=== PATIENT | female | born 1995 | race Caucasian/White ===

== ENCOUNTER 2016-10-17 09:52 | Emergency (ER) | payer OTHER ==
--- NOTE | 2016-10-17 10:07 | ED ---
Skin/Abscess/FB HPI - General Chief complaint: Skin/Abscess/Foreign Body Stated complaint: CYST RT INNER THIGH Source: patient Mode of arrival: ambulatory Limitations: no limitations - History of Present Illness Initial comments: Pt is a 21 y/o female presenting with "bartholin cyst" on the right mid- labia.No significant PMH. Pt has a hx of this with last occurrence being in Jul 2016. Has a j2ee consultant and set up an appointment (Dr. Rodriguez). Has noticed a bump for the past 1-2 weeks. Has gotten a little bigger during this time. 5/10 pain. Has not tried taking any home remedies for this. She is sexually active and wears protection. LMP 10/08/16. Denies vaginal bleeding/ discharge. Denies F/C, PATEL, changes in vision, URI symptoms, CP, SOB, cough, N/V/ D, pain/burning with urination. - Related Data Home Medications Medication Instructions Recorded Confirmed Cpm/PE/Dm/Acetaminophen/Guaifn 2 tab PO Q6H PRN 10/17/16 10/17/16 [Tylenol Cold-Flu Day-Nt Caplet] Previous Rx's Medication Instructions Recorded Sulfamethox-Tmp 800-160Mg [Bactrim 1 tab PO Q12HR 7 Days 10/17/16 DS 800-160 mg] Allergies Allergy/AdvReac Type Severity Reaction Status Date / Time amoxicillin AdvReac Rash/Hives Verified 10/17/16 10:24 Penicillins AdvReac Rash/Hives Verified 10/17/16 10:24 Review of Systems ROS Statement: Those systems with pertinent positive or pertinent negative responses have been documented in the HPI. ROS Other: All systems not noted in ROS Statement are negative. Past Medical History Past Medical History: No Reported History History of Any Multi-Drug Resistant Organisms: None Reported Past Surgical History: No Surgical Hx Reported Past Psychological History: No Psychological Hx Reported Smoking Status: Current every day smoker Past Alcohol Use History: Occasional Past Drug Use History: None Reported General Exam Limitations: no limitations General appearance: alert, in no apparent distress Head exam: Present: atraumatic, normocephalic, normal inspection Eye exam: Present: normal appearance, PERRL, EOMI. Absent: scleral icterus, conjunctival injection, periorbital swelling ENT exam: Present: normal exam, mucous membranes moist Neck exam: Present: normal inspection. Absent: tenderness, meningismus, lymphadenopathy Respiratory exam: Present: normal lung sounds bilaterally. Absent: respiratory distress, wheezes, rales, rhonchi, stridor Cardiovascular Exam: Present: regular rate, normal rhythm, normal heart sounds. Absent: systolic murmur, diastolic murmur, rubs, gallop, clicks GI/Abdominal exam: Present: soft, normal bowel sounds, other (Abdomen is soft and nontender. No peritoneal signs.). Absent: distended, tenderness, guarding , rebound, rigid External exam: Present: other (There is a fluctuant Bartholin's cyst at the right lower labia (1.5 cm circular). Tender to the touch. No overlying cellulitis. No obvious vaginal discharge or bleeding.) Extremities exam: Present: normal inspection, full ROM, normal capillary refill. Absent: tenderness, pedal edema, joint swelling, calf tenderness Back exam: Present: normal inspection Neurological exam: Present: alert, oriented X3, CN II-XII intact Psychiatric exam: Present: normal affect, normal mood Skin exam: Present: warm, dry, intact, normal color. Absent: rash Course Vital Signs 10/17/16 10/17/16 09:57 11:38 Temperature 98.2 F 97.9 F Pulse Rate 82 64 Respiratory 17 16 Rate Blood Pressure 106/57 O2 Sat by Pulse 100 100 Oximetry Procedures - Incision & Drainage Consent Obtained: verbal consent Time Out Performed?: Yes Site: vulva/vagina Anesthetic Used: lidocaine 1% I&D Cleaning Method: Iodine Sterile Field Used?: Yes Scalpel Used: #11 Needle Aspiration Performed?: No Irrigation Performed?: No I&D Drainage Obtained: Pus, Blood Packing: Other (Word Catheter) Culture Obtained?: No Patient Tolerated Procedure: well, no complications, other (Filled word catheter with 1 cc tap water) Medical Decision Making - Medical Decision Making 1019: Pt presents for evaluation of "bartholin cyst". Hx of this. Has gynecology f/u. Will order UA/urine preg and perform a pelvic exam. 1111: Succesful I&D of bartholin cyst. purulent/bloody DC expressed with complete collapse of the bartholin cyst/abscess. Placed word catheter and filled 1 cc tap water. Discussed at length with the pt. Will DC with a course of bactrim (purulent drainage). Allergies to pencillin but not sulfa. Stressed importance of close f/u with j2ee consultant (Michael). Word catheter to stay in place for 4-6 weeks. No intercourse during this time. No soaking in bathtub/hot tub. Showers only. Discussed systemic signs of infection and when to return immediately to the ED. Also encouraged f/u with PCP. Answered all questions. - Lab Data Lab Results 10/17/16 10/17/16 Range/Units 10:25 10:25 Urine Color Yellow Urine Appearance Cloudy H (Clear) Urine pH 7.0 (5.0-8.0) Ur Specific [place] 1.016 (1.001-1.035) Urine Protein Negative (Negative) Urine Glucose (UA) Negative (Negative) Urine Ketones Negative (Negative) Urine Blood Negative (Negative) Urine Nitrate Negative (Negative) Urine Bilirubin Negative (Negative) Urine Urobilinogen <2.0 (<2.0) mg/dL Ur Leukocyte Esterase Negative (Negative) Urine WBC 2 (0-5) /hpf Ur Squamous Epith Cells 8 H (0-4) /hpf Urine HCG, Qual Not Detected (Not Detectd) Disposition Clinical Impression: Bartholin cyst Disposition: HOME SELF-CARE Condition: Good Instructions: Abscess Incision and Drainage (ED), Bartholin Cyst (ED) Prescriptions: Sulfamethox-Tmp 800-160Mg [Bactrim DS 800-160 mg] 1 tab PO Q12HR 7 Days Referrals: Josy Ogden MD [Primary Care Provider] - 1-2 days
[2016-10-17 11:07] LABS: Appearance,Urine Cloudy (Clear); Bilirubin,Urine Negative (Negative); Glucose,Urine (UA) Negative (Negative); Ketones,Urine Negative (Negative); Leukocyte Esterase,Urine Negative (Negative); Nitrite,Urine Negative (Negative); Particle Count 8592; Protein,Urine Negative (Negative); Specific Gravity,Urine 1.016 (1.001-1.035); Squamous Epithelial Cell,Urine 8 /hpf (0-4); UA Billing (MACRO vs. MICRO) MICRO; Urobilinogen,Urine <2.0 mg/dL (<2.0); WBC,Urine 2 /hpf (0-5)
[2016-10-17 11:40] VITALS: BP 106/57; PULSE 64; RESP 16; TEMP 97.9
== END 2016-10-17 11:39 | disposition home or self-care (01) ==
LOC: EC 09:52
DX: N75.0 Cyst of Bartholin's gland (principal); Z88.0 Allergy status to penicillin; F17.200 Nicotine dependence, unspecified, uncomplicated
CPT/HCPCS: 56420; 81001; 81025; 99283

== ENCOUNTER 2017-10-31 16:33 | Emergency (ER) | payer OTHER ==
[2017-10-31 16:49] VITALS: TEMP 97.5
[2017-10-31] MEDS ORDERED: HYDROcodone/APAP 5-325MG 1 EACH TAB PO STA (18:36)
[2017-10-31] MEDS ORDERED: KETOROLAC 30 MG/ML 1 ML VIAL IM STA (18:36)
--- NOTE | 2017-10-31 18:40 | ED ---
Skin/Abscess/FB HPI - General Chief complaint: Skin/Abscess/Foreign Body Stated complaint: Cyst Time Seen by Provider: 10/31/17 18:08 Source: patient Mode of arrival: ambulatory Limitations: no limitations - History of Present Illness Initial comments: 22-year-old female patient presents to the emergency department today for evaluation of swelling and abscess formation to the right labia. Patient states that she has a history of Bartholin cyst. States that she has been getting this on and off for the last 4-5 years. States that she has had them drained approximately 6 times. States that she was in to see her jewelry sorter approximately one week ago and did have it drained. States it has started swelling again and become more painful over the last 2 days. She states she has been taking her antibiotic however did miss 2 days. States she has taken her pain medication as directed. States she has been doing warm compresses. She denies any fevers or chills. Denies any nausea or vomiting. Denies any abnormal vaginal bleeding or discharge. Patient denies any recent rash, shortness breath, chest pain, abdominal pain, nausea, vomiting, diarrhea, constipation, back pain, numbness, tingling, dizziness, weakness, hematuria, dysuria, urinary urgency, urinary frequency, headache, visual changes, or any other complaints. - Related Data Home Medications Medication Instructions Recorded Confirmed Cpm/PE/Dm/Acetaminophen/Guaifn 2 tab PO Q6H PRN 10/17/16 10/17/16 [Tylenol Cold-Flu Day-Nt Caplet] Previous Rx's Medication Instructions Recorded Sulfamethox-Tmp 800-160Mg [Bactrim 1 tab PO Q12HR 7 Days tab 10/17/16 DS 800-160 mg] Allergies Allergy/AdvReac Type Severity Reaction Status Date / Time amoxicillin AdvReac Rash/Hives Verified 10/31/17 16:45 Penicillins AdvReac Rash/Hives Verified 10/31/17 16:45 Review of Systems ROS Statement: Those systems with pertinent positive or pertinent negative responses have been documented in the HPI. ROS Other: All systems not noted in ROS Statement are negative. Past Medical History Past Medical History: No Reported History History of Any Multi-Drug Resistant Organisms: None Reported Past Surgical History: No Surgical Hx Reported Past Psychological History: No Psychological Hx Reported Smoking Status: Current every day smoker Past Alcohol Use History: Occasional Past Drug Use History: None Reported General Exam Limitations: no limitations General appearance: alert, in no apparent distress, other (This is a well- developed, well-nourished adult female patient in no acute distress. Vital signs upon presentation are temperature 97.5F, pulse 119, respirations 17, blood pressure 98/60, pulse ox 100% on room air.) Eye exam: Present: normal appearance, PERRL, EOMI. Absent: scleral icterus, conjunctival injection, periorbital swelling ENT exam: Present: normal exam, normal oropharynx, mucous membranes moist Respiratory exam: Present: normal lung sounds bilaterally. Absent: respiratory distress, wheezes, rales, rhonchi, stridor Cardiovascular Exam: Present: regular rate, normal rhythm, normal heart sounds. Absent: systolic murmur, diastolic murmur, rubs, gallop, clicks External exam: Present: other (Presence sent to the right labia. Area is erythematous and swollen. Very tender to touch.). Absent: normal external exam Extremities exam: Present: other (No inguinal lymphadenopathy noted) Neurological exam: Present: alert, oriented X3, CN II-XII intact Psychiatric exam: Present: normal affect, normal mood Skin exam: Present: warm, dry, intact, normal color. Absent: rash Course Vital Signs 10/31/17 16:46 Temperature 97.5 F L Pulse Rate 119 H Respiratory 17 Rate Blood Pressure 98/60 O2 Sat by Pulse 100 Oximetry Procedures - Incision & Drainage Consent Obtained: verbal consent Time Out Performed?: Yes Indication: Bartholin's cyst Site: vulva/vagina (Right labia) Size (cm): 3 Anesthetic Used: lidocaine 1% Amount (mLs): 5 I&D Cleaning Method: Betadine Sterile Field Used?: Yes Scalpel Used: #11 Needle Aspiration Performed?: No Irrigation Performed?: No I&D Drainage Obtained: Pus, Blood Culture Obtained?: Yes Complications: pain Patient Tolerated Procedure: well Medical Decision Making - Medical Decision Making 22-year-old female patient presented to the emergency department today for evaluation of a Bartholin's cyst to the right labia. Physical examination reveals 3 cm abscess to the right labia. Area was erythematous and swollen. We did perform incision and drainage. Patient was given pain medication. We did discuss warm compresses and sitz baths. Patient does have an appointment with Dr. Gudino coming up to discuss possible surgery as she does have recurrent bartholin cysts. Patient started taking Bactrim, she is instructed to complete this prescription. She is instructed to take her home pain medication as directed. Return parameters discussed in detail. Patient verbalizes understanding and agrees with the plan. Disposition Clinical Impression: Bartholin cyst Disposition: HOME SELF-CARE Condition: Good Instructions: Abscess Incision and Drainage (ED), Bartholin Cyst (ED) Additional Instructions: Complete your antibiotic as directed by Dr. Gudino. Take home pain medications. Continue to do warm sitz baths and compresses to the area. Follow up with Dr. Gudino as you have planned, call to see if you can get a sooner appointment. Return here immediately for any new, worsening, or concerning symptoms. Referrals: None,Stated [Primary Care Provider] - 1-2 days Time of Disposition: 18:40
[2017-10-31 19:02] VITALS: BP 126/68; PULSE 110; RESP 20
== END 2017-10-31 19:02 | disposition home or self-care (01) ==
LOC: EC 16:33
DX: N75.0 Cyst of Bartholin's gland (principal); F17.200 Nicotine dependence, unspecified, uncomplicated; Z88.0 Allergy status to penicillin
CPT/HCPCS: 87070; 87205; 99283; 56420; 96372; J1885

== ENCOUNTER 2018-04-21 21:06 | Emergency (ER) | payer OTHER ==
[2018-04-21] MEDS ORDERED: LIDOCAINE 1% INJ 10MG/ML (20 ML MDV) SQ ONE (21:57)
[2018-04-21] MEDS ORDERED: ACET/COD 300 MG/30 MG STARTER PACK 6 TAB BTL PO STA (23:03)
[2018-04-21] MEDS ORDERED: SULFAMETH-TMP DS STARTER PACK 2 TAB BTL PO STA (23:06)
--- NOTE | 2018-04-21 23:08 | ED ---
Skin/Abscess/FB HPI - General Chief complaint: Skin/Abscess/Foreign Body Stated complaint: cyst Time Seen by Provider: 04/21/18 21:13 Source: patient Mode of arrival: ambulatory Limitations: no limitations - History of Present Illness Initial comments: 22-year-old female patient presents to the emergency department today for evaluation of abscess to her right labia. Patient states she has a history of Bartholin's abscess and has had to have them drained approximately 7 times. Patient states at the beginning of this year she was scheduled to have surgery to remove the Bartholin's gland however she was incarcerated and unable to have the surgery. Patient states for the last 2-3 days she has noticed increased swelling and pain to the area. Patient states she was recently evaluated for STDs and was negative. Patient denies any fevers or chills. Denies any hematuria, dysuria, urinary frequency, urinary urgency. She is unsure if she may be . Patient denies any recent rash, fever, chills, shortness breath , chest pain, abdominal pain, nausea, vomiting, diarrhea, constipation, back pain, numbness, tingling, dizziness, weakness, hematuria, headache, visual changes, or any other complaints. - Related Data Home Medications Medication Instructions Recorded Confirmed Acetaminophen Tab [Tylenol Tab] 650 mg PO Q6HR PRN 04/21/18 04/21/18 Previous Rx's Medication Instructions Recorded Ibuprofen [Motrin] 600 mg PO Q8HR PRN #30 tab 04/21/18 Sulfamethoxazole/Trimethoprim 1 each PO BID #20 tablet 04/21/18 [Bactrim DS 800-160 mg] Allergies Allergy/AdvReac Type Severity Reaction Status Date / Time amoxicillin Allergy Rash/Hives Verified 04/21/18 21:26 Penicillins Allergy Rash/Hives Verified 04/21/18 21:26 Review of Systems ROS Statement: Those systems with pertinent positive or pertinent negative responses have been documented in the HPI. ROS Other: All systems not noted in ROS Statement are negative. Past Medical History Past Medical History: No Reported History History of Any Multi-Drug Resistant Organisms: None Reported Past Surgical History: No Surgical Hx Reported Past Psychological History: No Psychological Hx Reported Smoking Status: Current every day smoker Past Alcohol Use History: Occasional Past Drug Use History: None Reported General Exam Limitations: no limitations General appearance: alert, in no apparent distress, other (This is a well- developed, well-nourished adult female patient in no acute distress. Vital signs upon presentation are temperature 97.4F, pulse 110, respirations 18, blood pressure 128/73, pulse ox 96% on room air.) Eye exam: Present: normal appearance, PERRL, EOMI. Absent: scleral icterus, conjunctival injection, periorbital swelling ENT exam: Present: normal exam, normal oropharynx, mucous membranes moist Respiratory exam: Present: normal lung sounds bilaterally. Absent: respiratory distress, wheezes, rales, rhonchi, stridor Cardiovascular Exam: Present: regular rate, normal rhythm, normal heart sounds. Absent: systolic murmur, diastolic murmur, rubs, gallop, clicks GI/Abdominal exam: Present: soft, normal bowel sounds. Absent: distended, tenderness, guarding, rebound, rigid External exam: Present: other (There is enlarged Bartholin gland on the right, no drainage, there is erythema) Neurological exam: Present: alert, oriented X3, CN II-XII intact Psychiatric exam: Present: normal affect, normal mood Skin exam: Present: warm, dry, intact, normal color. Absent: rash Course Vital Signs 04/21/18 04/21/18 21:14 23:23 Temperature 97.4 F L 97.7 F Pulse Rate 110 H 91 Respiratory 18 16 Rate Blood Pressure 128/73 123/62 O2 Sat by Pulse 96 98 Oximetry Procedures - Incision & Drainage Consent Obtained: verbal consent Time Out Performed?: Yes Indication: Bartholin Abscess Site: vulva/vagina (Bartholin gland) Size (cm): 4 Anesthetic Used: lidocaine 1% Amount (mLs): 2 I&D Cleaning Method: Betadine Scalpel Used: #11 Needle Aspiration Performed?: No Irrigation Performed?: No I&D Drainage Obtained: Pus, Blood Culture Obtained?: Yes Patient Tolerated Procedure: well Medical Decision Making - Medical Decision Making 22-year-old female patient percents to the emergency department today for evaluation and drainage of a Bartholin's abscess. Physical examination did reveal a 4 cm abscess with some surrounding erythema. Patient is afebrile. Did drain the abscess and received approximately 5-10 mL of purulent drainage. Culture was obtained. Did want to insert a Word Catheter, but patient refused stating that this has never worked for her before. Patient was started on Bactrim. She is given pain medication. She is instructed to follow-up with Dr. Gudino for further evaluation. Return parameters were discussed in detail. She verbalizes understanding and agrees with this plan. - Lab Data Lab Results 04/21/18 Range/Units 22:43 Urine HCG, Qual Not Detected (Not Detectd) Disposition Clinical Impression: Bartholin's gland abscess Narrative: Right Disposition: HOME SELF-CARE Condition: Good Instructions: Abscess Incision and Drainage (ED), Bartholin Cyst (ED) Additional Instructions: Do sitz baths and warm compresses to the area. Complete antibiotic prescription and full. Follow-up with Dr. Gudino as you have planned. Return here immediately for any new, worsening, or concerning symptoms. Prescriptions: Ibuprofen [Motrin] 600 mg PO Q8HR PRN #30 tab PRN Reason: Pain Sulfamethoxazole/Trimethoprim [Bactrim DS 800-160 mg] 1 each PO BID #20 tablet Is patient prescribed a controlled substance at d/c from ED?: No Referrals: None,Stated [Primary Care Provider] - 1-2 days Domi Gudino DO [Doctor of Osteopathic Medicine] - 1-2 days Time of Disposition: 23:08
[2018-04-21 23:25] VITALS: BP 123/62; PULSE 91; RESP 16; TEMP 97.7
== END 2018-04-21 23:28 | disposition home or self-care (01) ==
LOC: EC 21:06
DX: N75.1 Abscess of Bartholin's gland (principal); F17.200 Nicotine dependence, unspecified, uncomplicated; Z88.0 Allergy status to penicillin
CPT/HCPCS: 81025; 87070; 87205; 99283; 56405; J2001

== ENCOUNTER 2018-07-11 08:44 | Emergency (ER) | payer OTHER ==
[2018-07-11 08:48] VITALS: BP 113/74; PULSE 77; RESP 16; TEMP 98.5
[2018-07-11] MEDS ORDERED: ACET/COD 300 MG/30 MG STARTER PACK 6 TAB BTL PO STA (09:03)
--- NOTE | 2018-07-11 09:05 | ED ---
Skin/Abscess/FB HPI - General Chief complaint: Skin/Abscess/Foreign Body Stated complaint: Cyst needs to be drained Time Seen by Provider: 07/11/18 08:48 Source: patient, RN notes reviewed Mode of arrival: ambulatory Limitations: no limitations - History of Present Illness Initial comments: 22-year-old female sent emergency Department chief complaint labial cyst. Patient states she's had this recurrent issue. Patient states she's had happened a few times in the past. Patient states started a couple days ago and is painful. Denies any drainage. Denies fevers or chills. Patient states that she never followed up at her last DENTAL INSURANCE COORDINATOR appointment though she is rescheduling. Patient denies any other complaints. No fever no chills. Patient has any vaginal bleeding vaginal discharge. Denies any abdominal pain. - Related Data Home Medications Medication Instructions Recorded Confirmed Acetaminophen Tab [Tylenol Tab] 650 mg PO Q6HR PRN 04/21/18 04/21/18 Previous Rx's Medication Instructions Recorded Ibuprofen [Motrin] 600 mg PO Q8HR PRN #30 tab 04/21/18 Sulfamethoxazole/Trimethoprim 1 each PO BID #20 tablet 04/21/18 [Bactrim DS 800-160 mg] Ibuprofen [Motrin] 600 mg PO Q8HR PRN #30 tab 07/11/18 Sulfamethox-Tmp 800-160Mg [Bactrim 1 each PO Q12HR #20 tab 07/11/18 Ds] Allergies Allergy/AdvReac Type Severity Reaction Status Date / Time amoxicillin Allergy Rash/Hives Verified 07/11/18 08:48 Penicillins Allergy Rash/Hives Verified 07/11/18 08:48 Review of Systems ROS Statement: Those systems with pertinent positive or pertinent negative responses have been documented in the HPI. ROS Other: All systems not noted in ROS Statement are negative. Past Medical History Past Medical History: No Reported History History of Any Multi-Drug Resistant Organisms: MRSA Date of last positivie culture/infection: 04/21/18 MDRO Source:: Cyst Past Surgical History: No Surgical Hx Reported Past Psychological History: No Psychological Hx Reported Smoking Status: Current every day smoker Past Alcohol Use History: Occasional Past Drug Use History: None Reported General Exam Limitations: no limitations General appearance: alert, in no apparent distress Head exam: Present: atraumatic, normocephalic, normal inspection Respiratory exam: Present: normal lung sounds bilaterally. Absent: respiratory distress, wheezes, rales, rhonchi, stridor Cardiovascular Exam: Present: regular rate, normal rhythm, normal heart sounds. Absent: systolic murmur, diastolic murmur, rubs, gallop, clicks External exam: Present: other (Exam performed with Shannan WEISS). Absent: normal external exam (Small less than 1 cm Bartholin's cyst on the right mild erythema minimally tender no lymph nodes palpable) Course Vital Signs 07/11/18 08:45 Temperature 98.5 F Pulse Rate 77 Respiratory 16 Rate Blood Pressure 113/74 O2 Sat by Pulse 99 Oximetry Medical Decision Making - Medical Decision Making 22-year-old female presented for labial cyst. There is a Bartholin's cyst noted assisted is less than 1 cm and is felt to be too small for worse catheter. Patient will apply warm compresses and was placed on antibiotics. She will follow-up with DENTAL INSURANCE COORDINATOR. Return parameters discussed. Disposition Clinical Impression: Infected cyst of Bartholin's gland duct Disposition: HOME SELF-CARE Condition: Stable Instructions: Abscess (ED) Additional Instructions: Please return to the Emergency Department if symptoms worsen or any other concerns. Prescriptions: Ibuprofen [Motrin] 600 mg PO Q8HR PRN #30 tab PRN Reason: Pain Sulfamethox-Tmp 800-160Mg [Bactrim Ds] 1 each PO Q12HR #20 tab Is patient prescribed a controlled substance at d/c from ED?: No Referrals: None,Stated [Primary Care Provider] - 1-2 days Time of Disposition: 09:04
== END 2018-07-11 09:23 | disposition home or self-care (01) ==
LOC: EC 08:44
DX: N75.0 Cyst of Bartholin's gland (principal); B99.9 Unspecified infectious disease; F17.200 Nicotine dependence, unspecified, uncomplicated; Z88.0 Allergy status to penicillin; Z86.14 Personal history of Methicillin resistant Staphylococcus aureus infection
CPT/HCPCS: 99283

== ENCOUNTER 2018-07-12 02:32 | Observation (INO) | payer OTHER ==
[2018-07-12] MEDS ORDERED: BUPIVACAINE (PF) 0.5% 30 ML VIAL SQ STA (03:05)
[2018-07-12] MEDS ORDERED: SULFAMETH-TMP DS STARTER PACK 2 TAB BTL PO STA (03:07)
[2018-07-12] MEDS ORDERED: LIDOCAINE 1% INJ 10MG/ML (20 ML MDV) SQ ONE (03:22)
--- NOTE | 2018-07-12 03:30 | ED ---
General Adult HPI - General Source: patient, RN notes reviewed Mode of arrival: ambulatory Limitations: no limitations <Keith Terry P - Last Filed: 07/12/18 21:56> <Jayashree Lucero P - Last Filed: 07/12/18 22:22> - General Chief complaint: Skin/Abscess/Foreign Body Stated complaint: Female Time Seen by Provider: 07/12/18 02:47 - History of Present Illness Initial comments: 22-year-old female presents to the emergency department for a chief complaint of labial cyst. Patient states it has been chronic and ongoing for years. Patient was seen here yesterday morning in the emergency department but cyst was thought to be too small to I&D. Patient states she was not able to get her antibiotics filled so presented to the emergency department. She states after she left the emergency department her right labia swelled to 3 times the size as it was when she was seen yesterday morning. She was also not able to attend her last [employer] appointment for this problem. She reports she has seen Dr. Gudino in the past who drained a Bartholin's cyst. She denies fevers or chills. She denies any pain or difficulty urinating. She states her labia is larger than it has been in the past with this problem. Patient does have a history of IV drug use. Patient has no other complaints at this time including shortness of breath, chest pain, abdominal pain, nausea or vomiting, headache, or visual changes. (Keith Terry) - Related Data Home Medications Medication Instructions Recorded Confirmed No Known Home Medications 07/12/18 07/12/18 Allergies Allergy/AdvReac Type Severity Reaction Status Date / Time amoxicillin Allergy Rash/Hives Verified 07/12/18 06:30 Penicillins Allergy Rash/Hives Verified 07/12/18 06:30 Review of Systems ROS Other: All systems not noted in ROS Statement are negative. <Keith Terry - Last Filed: 07/12/18 21:56> ROS Other: All systems not noted in ROS Statement are negative. <Jayashree Lucero P - Last Filed: 07/12/18 22:22> ROS Statement: Those systems with pertinent positive or pertinent negative responses have been documented in the HPI. Past Medical History Past Medical History: No Reported History History of Any Multi-Drug Resistant Organisms: MRSA Date of last positivie culture/infection: 04/21/18 MDRO Source:: Cyst Past Surgical History: No Surgical Hx Reported Past Psychological History: No Psychological Hx Reported Smoking Status: Current every day smoker Past Alcohol Use History: Occasional Past Drug Use History: None Reported <Keith Terry P - Last Filed: 07/12/18 21:56> General Exam Limitations: no limitations General appearance: alert, in no apparent distress Head exam: Present: atraumatic, normocephalic, normal inspection Eye exam: Present: normal appearance, PERRL, EOMI. Absent: scleral icterus, conjunctival injection, periorbital swelling ENT exam: Present: normal exam, mucous membranes moist Neck exam: Present: normal inspection, full ROM. Absent: tenderness, meningismus, lymphadenopathy Respiratory exam: Present: normal lung sounds bilaterally. Absent: respiratory distress, wheezes, rales, rhonchi, stridor Cardiovascular Exam: Present: regular rate, normal rhythm, normal heart sounds. Absent: systolic murmur, diastolic murmur, rubs, gallop, clicks External exam: Present: swelling (Significant edema noted to right labial majora and minora. ). Absent: normal external exam Neurological exam: Present: alert, oriented X3, CN II-XII intact Psychiatric exam: Present: normal affect, normal mood <Keith Terry P - Last Filed: 07/12/18 21:56> Vital Signs 07/12/18 07/12/18 07/12/18 02:35 05:40 06:30 Temperature 97.5 F L 98.0 F 98.3 F Pulse Rate 92 82 Pulse Rate [ 88 Pulse Oximetery ] Respiratory 18 16 16 Rate Blood Pressure 119/81 113/78 Blood Pressure 104/58 [Right Arm] O2 Sat by Pulse 98 99 99 Oximetry Medical Decision Making - Lab Data Result diagrams: 07/12/18 04:33 07/12/18 04:33 <Keith Terry P - Last Filed: 07/12/18 21:56> - Lab Data Result diagrams: 07/12/18 04:33 07/12/18 04:33 <Jayashree Lucero P - Last Filed: 07/12/18 22:22> - Medical Decision Making 22-year-old female presents to the emergency department for a chief complaint of labial cyst. Patient's cyst has been ongoing for the past few months. She was seen here yesterday morning and incision was not performed at that time due to small size of cyst. However, she states that the size of the right labia has increased to about 3 times the size it was yesterday morning. She denies fevers or chills. She states she was not able to fill her antibiotics. On exam patient does have significant edema noted to the right labia majora and minora. I did attempt to incise Bartholin's gland without success. There also appears to be a possible labial abscess as well, did not attempt any other incisions. At this time it is felt that patient warrants inpatient gynecologic consult with possible sedation. Dr. Lucero consulted Dr. Saavedra who is accepting the admission and recommends no IV antibiotics given at this time ( Keith Terry) I personally saw and evaluated the patient, patient was incredibly uncomfortable , she received morphine and local anesthetic was still cannot tolerate I&D of the Bartholin's cyst. Considering that the abscess appears to track through the labia minora I do feel that she would benefit from evaluation by gynecology and possible I&D under anesthesia. Patient care was discussed with gynecology manager fashion Dr. Saavedra who accepts the patient to Observation with NPO and plan for possible I&D under anesthesia (Jayashree Lucero) - Lab Data Lab Results 07/12/18 07/12/18 07/12/18 Range/Units 04:33 04:33 05:00 WBC 16.3 H (3.8-10.6) k/uL RBC 4.42 (3.80-5.40) m/uL Hgb 12.7 (11.4-16.0) gm/dL Hct 39.2 (34.0-46.0) % MCV 88.7 (80.0-100.0) fL MCH 28.7 (25.0-35.0) pg MCHC 32.3 (31.0-37.0) g/dL RDW 12.8 (11.5-15.5) % Plt Count 304 (150-450) k/uL Neutrophils % 88 % Lymphocytes % 7 % Monocytes % 4 % Eosinophils % 0 % Basophils % 0 % Neutrophils # 14.4 H (1.3-7.7) k/uL Lymphocytes # 1.1 (1.0-4.8) k/uL Monocytes # 0.6 (0-1.0) k/uL Eosinophils # 0.1 (0-0.7) k/uL Basophils # 0.0 (0-0.2) k/uL Sodium 139 (137-145) mmol/L Potassium 4.5 (3.5-5.1) mmol/L Chloride 106 (98-107) mmol/L Carbon Dioxide 26 (22-30) mmol/L Anion Gap 7 mmol/L BUN 13 (7-17) mg/dL Creatinine 0.58 (0.52-1.04) mg/dL Est GFR (CKD-EPI)AfAm >90 (>60 ml/min/1.73 sqM) Est GFR (CKD-EPI)NonAf >90 (>60 ml/min/1.73 sqM) Glucose 106 H (74-99) mg/dL Calcium 9.4 (8.4-10.2) mg/dL Total Bilirubin 0.3 (0.2-1.3) mg/dL AST 59 H (14-36) U/L ALT 71 H (9-52) U/L Alkaline Phosphatase 112 (38-126) U/L Total Protein 7.0 (6.3-8.2) g/dL Albumin 4.0 (3.5-5.0) g/dL Urine Color Urine Appearance (Clear) Urine pH (5.0-8.0) Ur Specific [place] (1.001-1.035) Urine Protein (Negative) Urine Glucose (UA) (Negative) Urine Ketones (Negative) Urine Blood (Negative) Urine Nitrite (Negative) Urine Bilirubin (Negative) Urine Urobilinogen (<2.0) mg/dL Ur Leukocyte Esterase (Negative) Urine RBC (0-5) /hpf Urine WBC (0-5) /hpf Ur Squamous Epith Cells (0-4) /hpf Urine Bacteria (None) /hpf Urine Mucus (None) /hpf Urine HCG, Qual Not Detected (Not Detectd) 07/12/18 Range/Units 05:00 WBC (3.8-10.6) k/uL RBC (3.80-5.40) m/uL Hgb (11.4-16.0) gm/dL Hct (34.0-46.0) % MCV (80.0-100.0) fL MCH (25.0-35.0) pg MCHC (31.0-37.0) g/dL RDW (11.5-15.5) % Plt Count (150-450) k/uL Neutrophils % % Lymphocytes % % Monocytes % % Eosinophils % % Basophils % % Neutrophils # (1.3-7.7) k/uL Lymphocytes # (1.0-4.8) k/uL Monocytes # (0-1.0) k/uL Eosinophils # (0-0.7) k/uL Basophils # (0-0.2) k/uL Sodium (137-145) mmol/L Potassium (3.5-5.1) mmol/L Chloride (98-107) mmol/L Carbon Dioxide (22-30) mmol/L Anion Gap mmol/L BUN (7-17) mg/dL Creatinine (0.52-1.04) mg/dL Est GFR (CKD-EPI)AfAm (>60 ml/min/1.73 sqM) Est GFR (CKD-EPI)NonAf (>60 ml/min/1.73 sqM) Glucose (74-99) mg/dL Calcium (8.4-10.2) mg/dL Total Bilirubin (0.2-1.3) mg/dL AST (14-36) U/L ALT (9-52) U/L Alkaline Phosphatase (38-126) U/L Total Protein (6.3-8.2) g/dL Albumin (3.5-5.0) g/dL Urine Color Yellow Urine Appearance Cloudy H (Clear) Urine pH 6.0 (5.0-8.0) Ur Specific [place] 1.013 (1.001-1.035) Urine Protein Negative (Negative) Urine Glucose (UA) Negative (Negative) Urine Ketones Negative (Negative) Urine Blood Moderate H (Negative) Urine Nitrite Positive H (Negative) Urine Bilirubin Negative (Negative) Urine Urobilinogen <2.0 (<2.0) mg/dL Ur Leukocyte Esterase Trace H (Negative) Urine RBC 14 H (0-5) /hpf Urine WBC 4 (0-5) /hpf Ur Squamous Epith Cells 2 (0-4) /hpf Urine Bacteria Few H (None) /hpf Urine Mucus Rare H (None) /hpf Urine HCG, Qual (Not Detectd) Disposition Is patient prescribed a controlled substance at d/c from ED?: No Time of Disposition: 03:45 <Keith Terry P - Last Filed: 07/12/18 21:56> <Jayashree Lucero P - Last Filed: 07/12/18 22:22> Clinical Impression: Labial abscess, Vulvar edema Disposition: ADMITTED IP TO THIS HOSP Condition: Good
[2018-07-12] MEDS ORDERED: BUPIVACAINE (PF) 0.75% 10 ML VIAL SQ ONE (03:45)
[2018-07-12] MEDS ORDERED: MORPHINE SULFATE 4 MG/ML SYRINGE IVP STA (04:05)
[2018-07-12] MEDS ORDERED: CEFEPIME 1 GM in SODIUM CHLORIDE 0.9% 50 ML IVPB STA (04:06)
[2018-07-12] MEDS ORDERED: CLINDAMYCIN 600 MG in DEXTROSE 5% IN WATER 50 ML IVPB STA ×2 (04:06)
[2018-07-12] MEDS ORDERED: HYDROmorphone 1 MG/ML 1 ML SYRINGE IVP PRN (04:46)
[2018-07-12] MEDS ORDERED: NALOXONE 0.4 MG/ML 1 ML VIAL IV PRN (04:46)
[2018-07-12] MEDS: SODIUM CHLORIDE 0.9% 1,000 ML IV SCH ×2 (04:55→13:00)
[2018-07-12 05:01] LABS: ALT 71 U/L (9-52); AST 59 U/L (14-36); Alkaline Phosphatase 112 U/L (38-126); Anion Gap 7 mmol/L; Blood Urea Nitrogen 13 mg/dL (7-17); Calcium 9.4 mg/dL (8.4-10.2); Carbon Dioxide 26 mmol/L (22-30); Chloride 106 mmol/L (98-107); Glucose 106 mg/dL (74-99); Potassium 4.5 mmol/L (3.5-5.1); Sodium 139 mmol/L (137-145); Total Bilirubin 0.3 mg/dL (0.2-1.3)
[2018-07-12 05:04] LABS: Basophils % (A) 0 %; Eosinophils # (A) 0.1 k/uL (0-0.7); Eosinophils % (A) 0 %; HCT 39.2 % (34.0-46.0); HGB 12.7 gm/dL (11.4-16.0); Lymphocytes # (A) 1.1 k/uL (1.0-4.8); Lymphocytes % (A) 7 %; MCH 28.7 pg (25.0-35.0); MCHC 32.3 g/dL (31.0-37.0); MCV 88.7 fL (80.0-100.0); Mean Platelet Volume 7.1; Monocytes # (A) 0.6 k/uL (0-1.0); Monocytes % (A) 4 %; Neutrophils # (A) 14.4 k/uL (1.3-7.7); Neutrophils % (A) 88 %; Platelet Count 304 k/uL (150-450); RBC 4.42 m/uL (3.80-5.40); RDW 12.8 % (11.5-15.5); WBC 16.3 k/uL (3.8-10.6)
[2018-07-12 05:16] LABS: Appearance,Urine Cloudy (Clear); Bacteria,Urine Few /hpf; Bilirubin,Urine Negative (Negative); Blood,Urine Moderate (Negative); Color,Urine Yellow; Glucose,Urine (UA) Negative (Negative); Ketones,Urine Negative (Negative); Leukocyte Esterase,Urine Trace (Negative); Mucus,Urine Rare /hpf; Nitrite,Urine Positive (Negative); Protein,Urine Negative (Negative); RBC,Urine 14 /hpf (0-5); Specific Gravity,Urine 1.013 (1.001-1.035); Squamous Epithelial Cell,Urine 2 /hpf (0-4); Urobilinogen,Urine <2.0 mg/dL (<2.0); WBC,Urine 4 /hpf (0-5)
[2018-07-12 08:56] VITALS: BMI 17.7
--- NOTE | 2018-07-12 10:14 | P.HPOB ---
History of Present Illness H&P Date: 07/12/18 Chief Complaint: Right labial swelling and pain This is a 22-year-old 0 woman with an LMP 2 weeks ago who presents with significant increase in right labial swelling and pain. She has a known history of recurrent right Bartholin's gland abscess. She was seen in the emergency department approximately 24 hours ago however the gland was not swollen enough for effective I&D. She was sent home with oral antibiotics and repeat presented with a significant increase in swelling. She is unable to tolerate the manipulation of the area lateral alone incision and drainage under local anesthetic secondary to severe discomfort therefore she is admitted to the operating room for I&D under sedation. Past medical history is significant for IV drug use. Last use approximately 24- 48 hours ago. She also smokes one half pack cigarettes per day. Denies recent alcohol use. Review of Systems Constitutional: Denies chills, Denies fever Cardiovascular: Denies chest pain, Denies irregular heart beat, Denies shortness of breath Respiratory: Denies cough Gastrointestinal: Reports nausea, Reports vomiting, Denies abdominal pain, Denies constipation, Denies diarrhea Genitourinary: Reports difficulty voiding, Reports genital sores, Denies abnormal vaginal bleeding, Denies dysuria, Denies hematuria Menstruation: Reports as per HPI Musculoskeletal: Reports low back pain Integumentary: Denies rash Neurological: Denies headaches Past Medical History Past Medical History: No Reported History History of Any Multi-Drug Resistant Organisms: MRSA Date of last positivie culture/infection: 04/21/18 MDRO Source:: Cyst Additional Past Surgical History / Comment(s): [place] teeth removal Past Psychological History: No Psychological Hx Reported Smoking Status: Current every day smoker Past Alcohol Use History: Occasional Additional Past Alcohol Use History / Comment(s): pt states she has been someking for about 8 years. pt states she smokes 1/2 a pakc per day Past Drug Use History: Heroin Additional Drug Use History / Comment(s): pt states she used heroin a day and a half ago. Medications and Allergies Home Medications Medication Instructions Recorded Confirmed Type No Known Home Medications 07/12/18 07/12/18 History Allergies Allergy/AdvReac Type Severity Reaction Status Date / Time amoxicillin Allergy Rash/Hives Verified 07/12/18 06:30 Penicillins Allergy Rash/Hives Verified 07/12/18 06:30 Exam Vital Signs Temp Pulse Pulse Resp BP BP Pulse Ox 07/12/18 08:00 88 16 07/12/18 06:30 98.3 F 88 16 104/58 99 07/12/18 05:40 98.0 F 82 16 113/78 99 07/12/18 02:35 97.5 F L 92 18 119/81 98 Intake and Output 07/11/18 07/12/18 07/12/18 22:59 06:59 14:59 Other: Voiding Method Toilet Weight 49.895 kg 49.895 kg This is a pale, thin female in obvious discomfort. HEENT exam is unremarkable. Her breathing is unlabored. Heart is regular rate and rhythm. The abdomen is slim, soft, nontender, nondistended. On pelvic examination the right labia, vulva and perineum are grossly swollen and erythematous. There is no active drainage noted. Neurologic exam is grossly in tact with no focal deficits noted. Results Result Diagrams: 07/12/18 04:33 07/12/18 04:33 Abnormal Lab Results - Last 24 Hours (Table) 07/12/18 07/12/18 07/12/18 Range/Units 04:33 04:33 05:00 WBC 16.3 H (3.8-10.6) k/uL Neutrophils # 14.4 H (1.3-7.7) k/uL Glucose 106 H (74-99) mg/dL AST 59 H (14-36) U/L ALT 71 H (9-52) U/L Urine Appearance Cloudy H (Clear) Urine Blood Moderate H (Negative) Urine Nitrite Positive H (Negative) Ur Leukocyte Esterase Trace H (Negative) Urine RBC 14 H (0-5) /hpf Urine Bacteria Few H (None) /hpf Urine Mucus Rare H (None) /hpf Assessment and Plan (1) Infected cyst of Bartholin's gland duct Current Visit: Yes Status: Acute Code(s): N75.0 - CYST OF BARTHOLIN'S GLAND SNOMED Code(s): 75303696 (2) Labial abscess Current Visit: Yes Status: Acute Code(s): N76.4 - ABSCESS OF VULVA SNOMED Code(s): 028936487 (3) Vulvar edema Current Visit: Yes Status: Acute Code(s): N90.89 - OTH NONINFLAMMATORY DISORDERS OF VULVA AND PERINEUM SNOMED Code(s): 88348841 (4) IV drug user Current Visit: Yes Status: Acute Code(s): F19.90 - OTHER PSYCHOACTIVE SUBSTANCE USE, UNSPECIFIED, UNCOMPLICATED SNOMED Code(s): 960307795 (5) MRSA (methicillin resistant Staphylococcus aureus) carrier Current Visit: Yes Status: Acute Code(s): Z22.322 - CARRIER OR SUSPECTED CARRIER OF METHICILLIN RESIS STAPH SNOMED Code(s): 378117525 Plan: 22-year-old 0 woman with recurrent right Bartholin's gland abscess, right labial and vulvar abscess. I recommend incision and drainage under anesthetic secondary to extreme discomfort at the bedside. I reviewed the procedure and anticipated recovery and follow up with the patient. Risks include bleeding and scarring. She will likely need marsupialization of the gland at a later date when significant edema and abscess has resolved. All questions were answered and consent was obtained. She has been nothing by mouth since last night. The anesthesia and or teams have been notified. Time with Patient: Greater than 30
[2018-07-12] MEDS ORDERED: IV FLUID CONTINUATION 1,000 ML IV ONE ×2 (12:04→12:21)
[2018-07-12] MEDS ORDERED: fentaNYL (PF) 50 MCG/ML 2 ML AMP ONE (12:12)
[2018-07-12] MEDS ORDERED: MIDAZOLAM 2 MG/2 ML VIAL ONE (12:12)
[2018-07-12] MEDS ORDERED: KETOROLAC 30 MG/ML 1 ML VIAL ONE (12:12)
[2018-07-12] MEDS ORDERED: PROPOFOL 10 MG/ML 20 ML VIAL IV ONE (12:12)
[2018-07-12] MEDS ORDERED: ONDANSETRON 4 MG/2 ML VIAL ONE (12:12)
--- NOTE | 2018-07-12 12:39 | P.OP ---
Date of Procedure: 07/12/18 Preoperative Diagnosis: Right labial and Bartholin's gland abscess Postoperative Diagnosis: Right labial abscess Procedure(s) Performed: Incision and drainage of right labial abscess Anesthesia: MAC Surgeon: Nadja Saavedra Estimated Blood Loss (ml): 0 IV fluids (ml): 300 Urine output (ml): 0 Pathology: other (Cultures) Condition: stable Disposition: PACU Indications for Procedure: Right labial swelling, pain and abscess Operative Findings: Grossly enlarged right labia and vulva with active drainage of pus from a previous attempted I and D site. No evidence of Bartholin's gland abscess. Normal left labial vulvar Bartholin's gland. Description of Procedure: After the patient was taken to the operating room general anesthetic was administered without incident. She was in positioned, prepped and draped in the dorsal lithotomy position. With gentle prep of the vagina there was spontaneous leakage of pus from previously attempted I&D site in the emergency room. Once prep and drape was completed hemostat was inserted in this I&D site and loculations were broken up. Copious pus on and bloody fluid was expressed. The area was gently probed and there was an abscess cavity extending inferiorly and posteriorly approximately 5 cm. This all was in the labia and vulva with no on Bartholin's gland component. The I&D site was too large for catheter placement therefore half inch iodoform gauze was used to pack the the rest of the vagina was inspected and no further drainage masses or infection was apparent. The patient was then awoken from anesthetic and transported to recovery in stable condition.
[2018-07-12 13:05] VITALS: RESP 20; TEMP 98
[2018-07-12 14:33] VITALS: BP 98/52; PULSE 89
== END 2018-07-12 14:41 | disposition home or self-care (01) ==
LOC: EC 02:32 → 1SOBS 05:46
PROVIDERS: ADMIT Obstetrics & Gynecology; ATTEND Obstetrics & Gynecology
DX: N76.4 Abscess of vulva (principal); N75.1 Abscess of Bartholin's gland; N75.0 Cyst of Bartholin's gland; Z88.0 Allergy status to penicillin; F17.210 Nicotine dependence, cigarettes, uncomplicated; F19.90 Other psychoactive substance use, unspecified, uncomplicated; Z22.322 Carrier or suspected carrier of Methicillin resistant Staphylococcus aureus
CPT/HCPCS: 56405; 99284; 36415; 80053; 85025; 81001; 81025; 87040; 87070; 87205; 87075; G0378; J2250; J2270; J2405; J0692; J2001; J3010; J1885; J1170; J2704

== ENCOUNTER → 2019-01-12 | Outpatient (CLI) | payer OTHER ==
[2019-01-13 07:32] LABS: Herpes simplex IgG I Ab <0.01 (< or = 0.90); Herpes simplex IgG II Ab 0.18 (< or = 0.90)
== END | disposition home or self-care (01) ==
LOC: LABWHC1 16:36
PROVIDERS: ATTEND Internal Medicine
DX: N76.5 Ulceration of vagina (principal)
CPT/HCPCS: 36415; 86694; 86695; 86696

== ENCOUNTER → 2019-01-13 | Outpatient (CLI) | payer OTHER ==
[2019-01-13 10:46] LABS: Basophils % (A) 0 %; Eosinophils # (A) 0.1 k/uL (0-0.7); Eosinophils % (A) 1 %; HCT 39.6 % (34.0-46.0); HGB 12.5 gm/dL (11.4-16.0); Lymphocytes # (A) 1.8 k/uL (1.0-4.8); Lymphocytes % (A) 24 %; MCH 27.9 pg (25.0-35.0); MCHC 31.5 g/dL (31.0-37.0); MCV 88.6 fL (80.0-100.0); Mean Platelet Volume 7.6; Monocytes # (A) 0.4 k/uL (0-1.0); Monocytes % (A) 6 %; Neutrophils # (A) 4.7 k/uL (1.3-7.7); Neutrophils % (A) 66 %; Platelet Count 342 k/uL (150-450); RBC 4.47 m/uL (3.80-5.40); RDW 12.8 % (11.5-15.5); WBC 7.2 k/uL (3.8-10.6)
[2019-01-13 10:53] LABS: Amorphous Sediment,Urine Moderate /hpf; Appearance,Urine Turbid (Clear); Bacteria,Urine Rare /hpf; Bilirubin,Urine Negative (Negative); Blood,Urine Moderate (Negative); Color,Urine Dark Yellow; Glucose,Urine (UA) Negative (Negative); Ketones,Urine 1+ (Negative); Leukocyte Esterase,Urine Large (Negative); Mucus,Urine Moderate /hpf; Nitrite,Urine Negative (Negative); Protein,Urine Trace (Negative); RBC,Urine >182 /hpf (0-5); Squamous Epithelial Cell,Urine 2 /hpf (0-4); WBC,Urine 51 /hpf (0-5)
[2019-01-13 11:49] LABS: Erythrocyte Sedimentation Rate 36 mm/hr (0-20)
[2019-01-13 19:30] LABS: T4, Free (Free Thyroxine) 1.2 ng/dL (0.80-1.80)
[2019-01-13 19:32] LABS: Vitamin D 25 Hydroxy 11.7 ng/mL (30.0-100.0)
[2019-01-13 19:46] LABS: Albumin 4.4 g/dL (3.80-4.90); Albumin/Globulin Ratio 1.83 (1.60-3.17); Calcium 9.2 mg/dL (8.7-10.3); Globulin 2.4 g/dL (1.6-3.3); LDL Cholesterol,Calculated 70.2 mg/dL (0.0-131.0); Potassium 4.4 mmol/L (3.5-5.5); Total Bilirubin 0.3 mg/dL (0.2-1.2); Total Protein 6.8 g/dL (6.2-8.2); VLDL Calculation 29.8 mg/dL (5.00-40.00)
[2019-01-13 20:21] LABS: Hepatitis A Antibody IgM Non-Reactive (Non-Reactive); Hepatitis B Core IgM Non-Reactive (Non-Reactive)
== END | disposition home or self-care (01) ==
LOC: LABWHC1 09:47
PROVIDERS: ATTEND Internal Medicine
DX: E78.5 Hyperlipidemia, unspecified (principal); E87.0 Hyperosmolality and hypernatremia; N39.0 Urinary tract infection, site not specified; D64.9 Anemia, unspecified; Z86.19 Personal history of other infectious and parasitic diseases
CPT/HCPCS: 36415; 80053; 80061; 80074; 81001; 82306; 82550; 84439; 84443; 85025; 85652; 86140; 87086

== ENCOUNTER 2019-10-20 03:44 | Emergency (ER) | payer OTHER ==
[2019-10-20 03:55] VITALS: RESP 18
[2019-10-20] MEDS ORDERED: MAG HYDROX/AL HYDROX/SIMETH 30 ML, HYOSCYAMINE ELIXIR 10 ML, LIDOCAINE VISCOUS 2% 10 ML PO STA ×3 (04:01)
[2019-10-20] MEDS ORDERED: SODIUM CHLORIDE 0.9% 500 ML 500 ML IV STA (04:14)
[2019-10-20] MEDS ORDERED: ONDANSETRON 4 MG/2 ML VIAL IVP STA (04:14)
--- NOTE | 2019-10-20 04:23 | ED ---
Abdominal Pain HPI - General Chief Complaint: Abdominal Pain Stated Complaint: NVD Time Seen by Provider: 10/20/19 04:01 Source: patient Mode of arrival: ambulatory Limitations: no limitations - History of Present Illness Initial Comments: This patient is 24-year-old woman who presents with complaint that she is having epigastric burning that does radiate to the substernal area. She feels like she is having reflux going on. She has had some nausea. The symptoms have been going on intermittently going back days to weeks. She has had a couple of e pisodes of vomiting without blood or coffee-ground material. The patient states that every once while she does have a loose bowel movement as well. The patient furthermore gives history of having had a partial workup for hepatitis C. She does have history of IV drug abuse, but states she is currently not having withdrawal as she did use a few hours ago. MD Complaint: abdominal pain -: days(s) Location: epigastric Radiation: chest Migration to: no migration Severity: moderate Quality: burning Consistency: constant Improves With: nothing Worsens With: vomiting Associated Symptoms: nausea, vomiting, diarrhea - Related Data LMP (females 10-50): 3 weeks Previous Rx's Medication Instructions Recorded Famotidine [Pepcid] 20 mg PO BID #14 tablet 10/20/19 Allergies Allergy/AdvReac Type Severity Reaction Status Date / Time amoxicillin Allergy Rash/Hives Verified 07/12/18 06:30 Penicillins Allergy Rash/Hives Verified 07/12/18 06:30 Review of Systems ROS Statement: Those systems with pertinent positive or pertinent negative responses have been documented in the HPI. ROS Other: All systems not noted in ROS Statement are negative. Constitutional: Denies: fever, chills Respiratory: Denies: cough, dyspnea Cardiovascular: Denies: chest pain, palpitations, edema Gastrointestinal: Reports: as per HPI, abdominal pain, nausea, vomiting, stefany rrhea. Denies: constipation, melena, hematochezia Genitourinary: Denies: dysuria, hematuria, abnormal menses Musculoskeletal: Denies: back pain Skin: Denies: rash Neurological: Denies: headache Past Medical History Past Medical History: No Reported History Additional Past Medical History / Comment(s): Possible Hep C. History of Any Multi-Drug Resistant Organisms: MRSA Date of last positivie culture/infection: 04/21/18 MDRO Source:: Cyst Past Surgical History: No Surgical Hx Reported Additional Past Surgical History / Comment(s): [place] teeth removal Past Psychological History: Bipolar, Depression Smoking Status: Current some day smoker Past Alcohol Use History: None Reported Past Drug Use History: Heroin, Marijuana General Exam Limitations: no limitations General appearance: alert, in no apparent distress Head exam: Present: atraumatic, normocephalic Eye exam: Present: normal appearance. Absent: scleral icterus, conjunctival injection ENT exam: Present: normal oropharynx Neck exam: Present: normal inspection Respiratory exam: Present: normal lung sounds bilaterally. Absent: respiratory distress, wheezes, rales, rhonchi, stridor Cardiovascular Exam: Present: regular rate, normal rhythm, normal heart sounds. Absent: systolic murmur, diastolic murmur, rubs, gallop GI/Abdominal exam: Present: soft. Absent: distended, tenderness, guarding, rebound, rigid, mass, pulsatile mass Extremities exam: Present: normal inspection, normal capillary refill. Absent: pedal edema, calf tenderness Back exam: Present: normal inspection. Absent: CVA tenderness (R), CVA tenderness (L) Neurological exam: Present: alert Skin exam: Present: warm, dry, intact, normal color, other (Patient has needle tracks to the dorsum of the hands bilaterally. No evidence of abscess or cellulitis.). Absent: rash Course Vital Signs 10/20/19 03:48 Temperature 97.1 F L Pulse Rate 101 H Respiratory 18 Rate Blood Pressure 125/84 O2 Sat by Pulse 100 Oximetry Medical Decision Making - Lab Data Result diagrams: 10/20/19 04:33 10/20/19 04:33 Lab Results 10/20/19 10/20/19 10/20/19 Range/Units 04:33 04:33 04:33 WBC (3.8-10.6) k/uL RBC (3.80-5.40) m/uL Hgb (11.4-16.0) gm/dL Hct (34.0-46.0) % MCV (80.0-100.0) fL MCH (25.0-35.0) pg MCHC (31.0-37.0) g/dL RDW (11.5-15.5) % Plt Count (150-450) k/uL Neutrophils % % Lymphocytes % % Monocytes % % Eosinophils % % Basophils % % Neutrophils # (1.3-7.7) k/uL Lymphocytes # (1.0-4.8) k/uL Monocytes # (0-1.0) k/uL Eosinophils # (0-0.7) k/uL Basophils # (0-0.2) k/uL Sodium 135 L (137-145) mmol/L Potassium 4.2 (3.5-5.1) mmol/L Chloride 100 (98-107) mmol/L Carbon Dioxide 31 H (22-30) mmol/L Anion Gap 4 mmol/L BUN 9 (7-17) mg/dL Creatinine 0.54 (0.52-1.04) mg/dL Est GFR (CKD-EPI)AfAm >90 (>60 ml/min/1.73 sqM) Est GFR (CKD-EPI)NonAf >90 (>60 ml/min/1.73 sqM) Glucose 96 (74-99) mg/dL Calcium 9.0 (8.4-10.2) mg/dL Total Bilirubin 0.2 (0.2-1.3) mg/dL AST 53 H (14-36) U/L ALT 54 H (4-34) U/L Alkaline Phosphatase 88 (38-126) U/L Total Protein 6.5 (6.3-8.2) g/dL Albumin 3.8 (3.5-5.0) g/dL Amylase 44 (30-110) U/L Lipase 29 (23-300) U/L Urine Color Light Yellow Urine Appearance Cloudy H (Clear) Urine pH 5.5 (5.0-8.0) Ur Specific [place] 1.008 (1.001-1.035) Urine Protein Negative (Negative) Urine Glucose (UA) Negative (Negative) Urine Ketones Negative (Negative) Urine Blood Negative (Negative) Urine Nitrite Negative (Negative) Urine Bilirubin Negative (Negative) Urine Urobilinogen <2.0 (<2.0) mg/dL Ur Leukocyte Esterase Negative (Negative) Urine RBC 1 (0-5) /hpf Urine WBC 1 (0-5) /hpf Ur Squamous Epith Cells 2 (0-4) /hpf Hyaline Casts 1 (0-2) /lpf Urine HCG, Qual Not Detected (Not Detectd) 10/20/19 Range/Units 04:33 WBC 9.9 (3.8-10.6) k/uL RBC 4.18 (3.80-5.40) m/uL Hgb 12.0 (11.4-16.0) gm/dL Hct 36.9 (34.0-46.0) % MCV 88.4 (80.0-100.0) fL MCH 28.7 (25.0-35.0) pg MCHC 32.5 (31.0-37.0) g/dL RDW 12.9 (11.5-15.5) % Plt Count 267 (150-450) k/uL Neutrophils % 75 % Lymphocytes % 17 % Monocytes % 6 % Eosinophils % 1 % Basophils % 0 % Neutrophils # 7.5 (1.3-7.7) k/uL Lymphocytes # 1.7 (1.0-4.8) k/uL Monocytes # 0.6 (0-1.0) k/uL Eosinophils # 0.1 (0-0.7) k/uL Basophils # 0.0 (0-0.2) k/uL Sodium (137-145) mmol/L Potassium (3.5-5.1) mmol/L Chloride (98-107) mmol/L Carbon Dioxide (22-30) mmol/L Anion Gap mmol/L BUN (7-17) mg/dL Creatinine (0.52-1.04) mg/dL Est GFR (CKD-EPI)AfAm (>60 ml/min/1.73 sqM) Est GFR (CKD-EPI)NonAf (>60 ml/min/1.73 sqM) Glucose (74-99) mg/dL Calcium (8.4-10.2) mg/dL Total Bilirubin (0.2-1.3) mg/dL AST (14-36) U/L ALT (4-34) U/L Alkaline Phosphatase (38-126) U/L Total Protein (6.3-8.2) g/dL Albumin (3.5-5.0) g/dL Amylase (30-110) U/L Lipase (23-300) U/L Urine Color Urine Appearance (Clear) Urine pH (5.0-8.0) Ur Specific [place] (1.001-1.035) Urine Protein (Negative) Urine Glucose (UA) (Negative) Urine Ketones (Negative) Urine Blood (Negative) Urine Nitrite (Negative) Urine Bilirubin (Negative) Urine Urobilinogen (<2.0) mg/dL Ur Leukocyte Esterase (Negative) Urine RBC (0-5) /hpf Urine WBC (0-5) /hpf Ur Squamous Epith Cells (0-4) /hpf Hyaline Casts (0-2) /lpf Urine HCG, Qual (Not Detectd) Disposition Clinical Impression: Reflux esophagitis, Transaminitis Disposition: HOME SELF-CARE Condition: Good Instructions (If sedation given, give patient instructions): Esophagitis (ED), Hepatitis C (ED) Prescriptions: Famotidine [Pepcid] 20 mg PO BID #14 tablet Is patient prescribed a controlled substance at d/c from ED?: No Referrals: Tejas Olivas MD [Primary Care Provider] - 1-2 days Terrence Beckman MD [STAFF PHYSICIAN] - 1-2 days
[2019-10-20 04:42] LABS: Appearance,Urine Cloudy (Clear); Basophils % (A) 0 %; Bilirubin,Urine Negative (Negative); Blood,Urine Negative (Negative); Color,Urine Light Yellow; Eosinophils # (A) 0.1 k/uL (0-0.7); Eosinophils % (A) 1 %; Glucose,Urine (UA) Negative (Negative); HCT 36.9 % (34.0-46.0); Hyaline Casts,Urine 1 /lpf (0-2); Ketones,Urine Negative (Negative); Leukocyte Esterase,Urine Negative (Negative); Lymphocytes # (A) 1.7 k/uL (1.0-4.8); Lymphocytes % (A) 17 %; MCH 28.7 pg (25.0-35.0); MCHC 32.5 g/dL (31.0-37.0); MCV 88.4 fL (80.0-100.0); Mean Platelet Volume 7.5; Monocytes # (A) 0.6 k/uL (0-1.0); Monocytes % (A) 6 %; Neutrophils # (A) 7.5 k/uL (1.3-7.7); Neutrophils % (A) 75 %; Nitrite,Urine Negative (Negative); PH, Urine 5.5 (5.0-8.0); Platelet Count 267 k/uL (150-450); Protein,Urine Negative (Negative); RBC 4.18 m/uL (3.80-5.40); RBC,Urine 1 /hpf (0-5); RDW 12.9 % (11.5-15.5); Specific Gravity,Urine 1.008 (1.001-1.035); Squamous Epithelial Cell,Urine 2 /hpf (0-4); Urobilinogen,Urine <2.0 mg/dL (<2.0); WBC 9.9 k/uL (3.8-10.6); WBC,Urine 1 /hpf (0-5)
[2019-10-20 04:51] LABS: ALT 54 U/L (4-34); AST 53 U/L (14-36); African American GFR (CKD) >90 (>60 ml/min/1.73 sqM); Albumin 3.8 g/dL (3.5-5.0); Alkaline Phosphatase 88 U/L (38-126); Amylase 44 U/L (30-110); Anion Gap 4 mmol/L; Blood Urea Nitrogen 9 mg/dL (7-17); Carbon Dioxide 31 mmol/L (22-30); Chloride 100 mmol/L (98-107); Glucose 96 mg/dL (74-99); Non-African American GFR(CKD) >90 (>60 ml/min/1.73 sqM); Potassium 4.2 mmol/L (3.5-5.1); Sodium 135 mmol/L (137-145); Total Bilirubin 0.2 mg/dL (0.2-1.3); Total Protein 6.5 g/dL (6.3-8.2)
[2019-10-20 06:12] VITALS: BP 128/79; PULSE 95; TEMP 98
== END 2019-10-20 05:49 | disposition home or self-care (01) ==
LOC: EC 03:44
DX: K21.0 Gastro-esophageal reflux disease with esophagitis (principal); R74.0 Nonspecific elevation of levels of transaminase and lactic acid dehydrogenase [LDH]; R23.8 Other skin changes; F19.11 Other psychoactive substance abuse, in remission; R19.7 Diarrhea, unspecified; F17.200 Nicotine dependence, unspecified, uncomplicated; Z88.0 Allergy status to penicillin; Z86.19 Personal history of other infectious and parasitic diseases; Z86.14 Personal history of Methicillin resistant Staphylococcus aureus infection
CPT/HCPCS: 36415; 80053; 82150; 83690; 85025; 81001; 81025; 99284; 96374; 96361; J2405

== ENCOUNTER → 2020-01-20 | Outpatient (CLI) | payer OTHER ==
[2020-01-20 14:26] LABS: Basophils % (A) 0 %; Eosinophils # (A) 0.2 k/uL (0-0.7); Eosinophils % (A) 4 %; HCT 37.7 % (34.0-46.0); Hypochromasia Slight; Lymphocytes # (A) 1.4 k/uL (1.0-4.8); Lymphocytes % (A) 26 %; MCH 27.6 pg (25.0-35.0); MCHC 31.7 g/dL (31.0-37.0); MCV 86.9 fL (80.0-100.0); Mean Platelet Volume 7.4; Monocytes # (A) 0.1 k/uL (0-1.0); Monocytes % (A) 2 %; Neutrophils # (A) 3.7 k/uL (1.3-7.7); Neutrophils % (A) 67 %; Platelet Count 319 k/uL (150-450); RBC 4.34 m/uL (3.80-5.40); RDW 13.3 % (11.5-15.5); WBC 5.5 k/uL (3.8-10.6)
[2020-01-20 15:34] LABS: Erythrocyte Sedimentation Rate 10 mm/hr (0-20)
--- NOTE | 2020-01-20 15:42 | XR ---
EXAMINATION TYPE: XR chest 2V DATE OF EXAM: 01/20/2020 COMPARISON: NONE HISTORY: Shortness of breath TECHNIQUE: Frontal and lateral views of the chest are obtained. FINDINGS: There is no focal air space opacity, pleural effusion, or pneumothorax seen. The cardiac silhouette size is within normal limits. The osseous structures are intact. IMPRESSION: No acute cardiopulmonary process.
[2020-01-20 20:19] LABS: African American GFR (CKD) 141.5 (60.0-200.0); Albumin 4.2 g/dL (3.80-4.90); Albumin/Globulin Ratio 1.68 (1.60-3.17); Anion Gap 3.9 mmol/L (4.00-12.00); BUN/Creat Ratio 15.71 Ratio (12.00-20.00); Calcium 9.5 mg/dL (8.7-10.3); Carbon Dioxide 30.1 mmol/L (21.6-31.8); Globulin 2.5 g/dL (1.6-3.3); Non-African American GFR(CKD) 122.1 (60.0-200.0); Potassium 4.2 mmol/L (3.5-5.5); Total Bilirubin 0.8 mg/dL (0.3-1.2); Total Protein 6.7 g/dL (6.2-8.2)
[2020-01-21 03:52] LABS: Hepatitis A Antibody IgM Non-Reactive (Non-Reactive); Hepatitis B Core IgM Non-Reactive (Non-Reactive); Hepatitis B Surface Antigen Non-Reactive (Non-Reactive); Hepatitis C IgG Antibody Reactive (Non-Reactive)
[2020-01-21 05:45] LABS: HIV 2 AB Non-Reactive (Non-Reactive); HIV AB P24 Non-Reactive (Non-Reactive); HIV P24 AG Non-Reactive (Non-Reactive)
== END | disposition home or self-care (01) ==
LOC: LABWHC1 13:43
PROVIDERS: ATTEND Internal Medicine
DX: R06.02 Shortness of breath (principal); L02.416 Cutaneous abscess of left lower limb; K75.9 Inflammatory liver disease, unspecified; D64.9 Anemia, unspecified; F19.10 Other psychoactive substance abuse, uncomplicated
CPT/HCPCS: 36415; 71046; 80053; 80074; 82550; 82977; 85025; 85652; 86803; 87040; 87390; 87522

== ENCOUNTER → 2022-07-17 | Outpatient (CLI) | payer OTHER ==
[2022-07-17 15:32] LABS: Basophils # (A) 0.04 X 10*3/uL (0.00-0.10); Basophils % (A) 0.6 %; Eosinophils # (A) 0.25 X 10*3/uL (0.04-0.35); Eosinophils % (A) 3.4 %; HCT 39.9 % (37.2-46.3); HGB 12.8 g/dL (12.0-15.0); Immature Grans, Automated 0.3 %; Lymphocytes # (A) 2.98 X 10*3/uL (0.90-5.00); MCH 30.2 pg (27.0-32.0); MCHC 32.1 g/dL (32.0-37.0); MCV 94.1 fL (80.0-97.0); Monocytes # (A) 0.63 X 10*3/uL (0.20-1.00); Monocytes % (A) 8.7 %; NRBC Per 100 WBC 0 /100 WBCS (0.0-0.0); Neutrophils # (A) 3.35 X 10*3/uL (1.80-7.70); Platelet Count 295 X 10*3/uL (140-440); RBC 4.24 X 10*6/uL (4.10-5.20); RDW 12.5 % (11.5-14.5); WBC 7.27 X 10*3/uL (4.50-10.00)
[2022-07-17 16:06] LABS: ALT 14 U/L (8-44); AST 19 U/L (13-35); Albumin 4.7 g/dL (3.8-4.9); Albumin/Globulin Ratio 2.41 (1.60-3.17); Alkaline Phosphatase 63 U/L (41-126); Bilirubin, Conjugated <0.20 mg/dL (0.20-0.40); Total Protein 6.7 g/dL (6.2-8.2)
== END | disposition home or self-care (01) ==
LOC: LABWHC1 09:52
PROVIDERS: ATTEND Nurse Practitioner Family
DX: Z51.81 Encounter for therapeutic drug level monitoring (principal); Z79.899 Other long term (current) drug therapy; B17.10 Acute hepatitis C without hepatic coma
CPT/HCPCS: 36415; 80076; 85025; 87522

== ENCOUNTER → 2022-12-10 | Outpatient (CLI) | payer BC ==
[2022-12-10 16:30] LABS: Basophils # (A) 0.05 X 10*3/uL (0.00-0.10); Basophils % (A) 0.7 %; Eosinophils # (A) 0.23 X 10*3/uL (0.04-0.35); Eosinophils % (A) 3.1 %; HGB 13.6 g/dL (12.0-15.0); Immature Grans, Automated 0.3 %; Lymphocytes # (A) 2.93 X 10*3/uL (0.90-5.00); Lymphocytes % (A) 39.4 %; MCH 29.3 pg (27.0-32.0); MCHC 31.6 g/dL (32.0-37.0); MCV 92.7 fL (80.0-97.0); Mean Platelet Volume 10.4 fL (9.5-12.2); Monocytes # (A) 0.54 X 10*3/uL (0.20-1.00); Monocytes % (A) 7.3 %; NRBC Per 100 WBC 0 /100 WBCS (0.0-0.0); Neutrophils # (A) 3.67 X 10*3/uL (1.80-7.70); Neutrophils % (A) 49.2 %; Platelet Count 306 X 10*3/uL (140-440); RBC 4.64 X 10*6/uL (4.10-5.20); RDW 12.8 % (11.5-14.5); WBC 7.44 X 10*3/uL (4.50-10.00)
[2022-12-10 16:37] LABS: ALT 14 U/L (8-44); AST 21 U/L (13-35); African American GFR (CKD) 120.7 (60.0-200.0); Albumin 5.2 g/dL (3.8-4.9); Albumin/Globulin Ratio 2.08 (1.60-3.17); Alkaline Phosphatase 63 U/L (41-126); BUN/Creat Ratio 20.51 Ratio (12.00-20.00); Blood Urea Nitrogen 16.1 mg/dL (9.0-27.0); Calcium 10.1 mg/dL (8.7-10.3); Carbon Dioxide 24.7 mmol/L (20.0-27.5); Chloride 104 mmol/L (96-109); Globulin 2.5 g/dL (1.6-3.3); Glucose 86 mg/dL (70-110); Non-African American GFR(CKD) 104.1 (60.0-200.0); Potassium 4.2 mmol/L (3.5-5.5); Sodium 141 mmol/L (135-145); Total Protein 7.8 g/dL (6.2-8.2)
[2022-12-10 16:38] LABS: C Reactive Protein <0.30 mg/dL (0.00-0.80); Creatine Kinase 96 U/L (26-186); Magnesium 2.1 mg/dL (1.5-2.4); Phosphorus 4.6 mg/dL (2.4-5.1)
[2022-12-10 16:57] LABS: Erythrocyte Sedimentation Rate 8 mm/Hr (0-20)
[2022-12-10 18:02] LABS: Chol/HDL Ratio 2.82 Ratio; LDL Cholesterol,Calculated 85.6 mg/dL (0.0-131.0); Rheumatoid Factor, Qnt <10 IU/mL (0-15); VLDL Calculation 16.34 mg/dL (5.00-40.00)
[2022-12-10 21:52] LABS: Anti-DNA, DS unit <1.0 IU/mL; DNA Double-Stranded NEGATIVE (NEGATIVE)
[2022-12-11 11:08] LABS: Cyclic Citrull Pep IgG Unit <1.5 U/mL; Cyclic Citrullinated Pep IgG NEGATIVE (NEGATIVE)
== END | disposition home or self-care (01) ==
LOC: LABWHC1 09:53
PROVIDERS: ATTEND Internal Medicine
DX: Z00.00 Encounter for general adult medical examination without abnormal findings (principal); M06.9 Rheumatoid arthritis, unspecified; M19.90 Unspecified osteoarthritis, unspecified site
CPT/HCPCS: 36415; 80053; 80061; 82306; 82550; 83735; 84100; 85025; 85652; 86038; 86140; 86200; 86225; 86431; 87522

== ENCOUNTER → 2023-06-30 | Outpatient (CLI) | payer BC ==
[2023-06-30 22:34] LABS: Albumin 4.8 d/dL (3.8-4.9)
== END | disposition home or self-care (01) ==
LOC: LABWHC1 11:46
PROVIDERS: ATTEND Internal Medicine
DX: E55.9 Vitamin D deficiency, unspecified (principal); E88.09 Other disorders of plasma-protein metabolism, not elsewhere classified
CPT/HCPCS: 36415; 82040; 82306